=== PATIENT | male | born 1985 | race Caucasian/White ===

== ENCOUNTER 2020-07-06 12:38 | Outpatient (CLI) | payer MEDICAID ==
--- NOTE | 2020-07-06 15:15 | Consultation ---
DATE OF CONSULTATION: 07/06/2020 CHIEF COMPLAINT: Referral for evaluation of Crohn's disease. PAST MEDICAL HISTORY: 1. Hemorrhoids. 2. Abnormal liver function tests. 3. History of colonic polyps two years ago. 4. History of terminal ileum ulcerations three years ago. PAST SURGICAL HISTORY: Marvell teeth removal in February. MEDICATION: None. ALLERGIES: No known drug allergies. FAMILY HISTORY: Brother had Crohn's disease. SOCIAL HISTORY: The patient occasionally drinks alcohol. Also uses marijuana on daily basis. REVIEW OF SYSTEMS: Grossly negative. PHYSICAL EXAMINATION: VITAL SIGNS: Temperature 97.8. Vital signs otherwise normal. HEENT: Normocephalic and atraumatic. Sclerae anicteric. NECK: Supple. No evidence of obvious lymphadenopathy. CARDIOVASCULAR: Regular rate and rhythm. Plus S1 and S2. LUNGS: Clear to auscultation bilaterally. ABDOMEN: Positive bowel sounds. Soft and nontender. No rebound. No guarding. No peritoneal sign. EXTREMITIES: No cyanosis, no clubbing, no edema. ASSESSMENT AND PLAN: This is a 35-year-old patient with family history of Crohn's disease, had a ulcerations three years ago according to him was nonspecific without any diagnosis. At this time, the patient is asymptomatic. There is no sign and symptoms of Crohn's disease. The patient does not have anemia per blood work. Denies any diarrhea, bloody bowel movement, no significant abdominal pain. Plan will be to monitor. Given the colon polyps three years ago, would need a repeat colonoscopy in 5 years, two more years from today. We also recommend the patient to come back if he develops any symptoms of Crohn's including weight loss, anemia, significant abdominal pain or rectal bleeding. Sebastián Roth M.D. DR: Serafin JOB#: [id number] CC:
== END 2020-07-06 14:38 | disposition home or self-care (01) ==
LOC: PAN 12:38
DX: K50.90 Crohn's disease, unspecified, without complications (principal); Z86.010 Personal history of colon polyps; F12.90 Cannabis use, unspecified, uncomplicated
CPT/HCPCS: G0463